=== PATIENT | male | born 1945 | race Caucasian/White ===

== ENCOUNTER → 2017-06-08 | Outpatient (CLI) | payer MEDICARE, BC ==
--- NOTE | 2017-06-08 14:27 | RADRPT ---
PROCEDURE: XR Right hip and pelvis. CLINICAL INDICATION: Right hip pain. Pelvic pain. TECHNIQUE: Two views. Frontal pelvis and lateral right hip. COMPARISON: No prior studies are available for comparison. FINDINGS: Multiple brachytherapy seeds are noted overlying the region of the prostate. There are mild degenerative changes of both hips with osteophytes noted. There is no fracture or dislocation. There is no lytic or blastic lesion. The upper pelvis is not completely included on the image. IMPRESSION: 1. Mild degenerative changes of both hips. 2. Brachytherapy seeds in the region of the prostate. RPTAT: QQ .Theron Pires MD, Date Time Electronically viewed and signed by .Theron Pires MD, on 06/08/2017 14:26 .R/
--- NOTE | 2017-06-09 05:33 | HKNOTE ---
DATE OF SERVICE: 06/08/2017 Dr. Daniel Ruiz [address] [place] [address] Ruiz: Your patient, Mekhi Manning, was seen in my office today complaining of pain in his right hip. His pain was somewhat atypical for hip arthritis, but an injection of lidocaine into his right hip relieved his pain, confirming that pain emanates from his right hip. The x-rays show atypical degenerative change, which is typical of rheumatoid arthritis. He was given an injection of cortisone into his right hip. He was given an injection of 2 cc of Kenalog and 10 cc 2 percent lidocaine into the right hip. Enclosed is a copy of my office notes for your records. Thank you for your confidence and continued support. With warmest regards, Dictated By: Salvador Shah MD /[email or web address]/lu /Document#: [id number]
--- NOTE | 2017-06-10 08:01 | HKNOTE ---
DATE OF SERVICE: 06/08/2017 REFERRING PHYSICIAN: Dr. Daniel Ruiz [address], [place] [address] MAIN COMPLAINT: Pain in the hip. HISTORY OF MAIN COMPLAINT: Patient is a 71-year-old male who complains of pain in his hip, which has been present for a few years, but has suddenly become more painful in the past 4 months. He was diagnosed as rheumatoid arthritis 10 years ago. He is under the care of a chemical cell changer in [place], Dr. Heather Lombardo. Dr Heather Lombardo has been giving him intravenous infusions of Enbrel, but this was discontinued because Medicare was not paying for it. Dr. Lombardo is planning to start a "new drug", Orencia. Patient has had multiple epidural cortisone injections, but these were given over 15 years ago. Currently he gets some pain in the lower back. The pain does not radiate down his leg at all. He does not have any numbness or tingling in his legs. He can walk about a mile and then the pain becomes severe. He does not use a walking aid. He does not limp. His leg lengths feel equal. It is difficult for him to flex his right hip to put on his shoes and socks and also to clip his toenails. He has had to give up his sporting activities (basketball and bowling). PRESENT COMPLAINTS: Patient's main pain is just posterior to the greater trochanter of the hip. There is no radiation up or down the leg. There is no numbness or tingling in the leg. Pain is described as being moderate. His main difficulty is climbing stairs and getting up from a sitting position. He does get rest pain and also night pain. He is not taking anything for the pain. PAST ORTHOPEDIC HISTORY: Left elbow radial head surgery in 1995 (displaced fracture of the radial head). PRIOR CORTISONE INTAKE: Three epidural lumbar epidural injections in the past. ALCOHOL INTAKE: One to 2 drinks a night. OTHER JOINT PROBLEMS: The patient has pain kneeling on his knees. He also has pain in his fingers. BLOOD TESTS FOR ARTHRITIS: Yes. WORK STATUS: A retired lead java developer architect. PAST MEDICAL HISTORY: 1. Controlled hypertension. 2. Type 2 diabetes. PAST SURGICAL HISTORY: 1. Radial head surgery 1995. 2. Prostate bead placement for prostate cancer in 2005. 3. Passed a kidney stone 2016. ALLERGIES: KEFLEX. PREVIOUS MAJOR INJURIES: Patient fell from a in 1995, and fractured his radial head. FAMILY HISTORY: Noncontributory. MEDICATIONS: 1. Amlodipine. 2. Valsartan. 3. Metformin. 4. Allopurinol. 5. Tamsulosin. 6. Timolol. 7. Latanoprost eye drops. 8. Simponi Aria infusions every 2 months. SYSTEMS REVIEW: Excess night urination, gait disturbance, hypertension, type 2 diabetes. HABITS: Patient does not smoke. He drinks an occasional glass of wine. RESERVATION MANAGER: Dr. Daniel Ruiz, [address] [place] [address]. PHYSICAL EXAMINATION: GENERAL: The patient is a remarkably youthful 71-year-old male. He walks without a walking aid and his gait is normal. VITAL SIGNS: Height 5, feet, 8-1/2 inches. Weight 215 pounds. Blood pressure 135/80, temperature 97.8. BACK: Within normal limits. Range of motion is within normal limits without pain or tenderness. NEUROLOGICAL: No loss of sensation to light skin touch. Deep tendon reflexes at the knees and ankles are symmetrical and normal. Straight leg raising test is negative bilaterally to 80 degrees. HIPS: Examination of the right hip: Full range of motion except for limited external rotation to approximately 25 degrees. Pain at all limits of motion. Examination of the left: Full range of motion without pain. KNEES: Bilateral knee examination completely normal. IMAGING: Plain x-rays of his pelvis and hips obtained today (brought with him) were reviewed. The right hip joint shows an excellent joint space but there is irregularity of the outline of the socket space without subchondral sclerosis, osteophyte formation or intraosseous cyst. Bone appears to be diffusely osteoporotic. DISCUSSION: A 71-year-old male who has had long history of problems with his lower back. He had 3 epidural lumbar epidural injections 15 years ago. He does not currently suffer from back pain. His main pain his in his right trochanteric area on forced internal and external rotation of the right hip. No tenderness anywhere around the hip. Examination of the left hip, full range of motion without pain. On knee examination, both knees are clinically normal. No tenderness anywhere around either knee. IMAGING: Plain x-rays of his pelvis and right hip obtained today at the [facility] were reviewed. The joint spaces are well maintained bilaterally. On the right side, there is some irregularity of the acetabular outline with minimal subchondral sclerosis. The femoral head is round and smooth. There are superior-inferior acetabular osteophytes. Imaging on the left hip is seen on the same study shows again a very well- maintained joint space but there is also irregularity of the acetabular outline with some crusts of subchondral sclerosis. Generalized osteoporosis. DIAGNOSES: 1. Symptomatic rheumatoid, right hip. 2. Rheumatoid left hip. 3. Hypertension. 4. Type 2 diabetes. 5. ALLERGIC TO KEFLEX. IMPRESSION: 1. A 71-year-old male who has had rheumatoid arthritis for 10 years. He has had right hip pain for about 6 years, which has become worse in the past few months. 2. Examination reveals quite marked limitation of motion of the right hip with pain on forced internal and external rotation. The pain is not in the typical location for a hip problem (groin) but more to the posterior aspect of the greater trochanter. There is a history of low back pain with sciatica, which was treated with epidural injections 15 years ago. There are no other clinical symptoms or findings to suggest that his current pain is sciatic in nature. By way of diagnostic tests, I gave him 5 cc 2 percent lidocaine into the right hip which relieved all his hip pain, confirming that the problem is within the hip joint. MANAGEMENT: Under sterile conditions, he is given an injection of 2 cc of Kenalog and 6 cc 2 percent lidocaine into the right hip joint. After the injections, there was almost complete elimination all his joint pain. The patient is advised that he will probably end up having to have a hip replacement at some time in the near future but not at this time. He is currently under the care of his chemical cell changer as well as his shirt line operator. If he needs further cortisone injections into his hip, he will return for further evaluation and treatment. The patient is not satisfied that his chemical cell changer is giving him appropriate options. He requested the name of another good chemical cell changer and I gave him the phone number of Dr. Rommel Londono. The patient will return for further treatment as needed. Dictated By: Salvador Shah MD /[email or web address]/lu /Document#: [id number]
== END | disposition home or self-care (01) ==
LOC: HKI 14:09
DX: M06.851 Other specified rheumatoid arthritis, right hip (principal); M06.852 Other specified rheumatoid arthritis, left hip; E11.9 Type 2 diabetes mellitus without complications; I10 Essential (primary) hypertension
CPT/HCPCS: 20610; 73502; G0463